=== PATIENT | female | born 1955 | race Caucasian/White ===

== ENCOUNTER 2018-03-10 21:08 | Emergency (ER) | payer MEDICARE, OTHER ==
[~2018-03-10] VITALS: Ht 162.6 cm; Wt 61.2 kg
[~2018-03-10 21:08] MED LIST: AMLODIPINE BESY10 MG PO; B12INJ IM; CHLORTHALIDONE25 MG PO; CYMBALTA60 MG PO; FLAGYL500 MG PO; KLOR-CON 1010 MEQ PO; LEVAQUIN 500 M500 M2 PO; NAPROSYN500 MG PO; OMEPRAZOLE40 MG PO; PHENERGAN 25 MG25 M1 PO; PRIMIDONE50 MG PO; VASCEPA1 GM PO; VITAMIN D 5050000 I1 PO
[2018-03-10] MEDS ORDERED: FENOFIBRATE160 MG (21:17)
[2018-03-10] MEDS ORDERED: WELLBUTRIN SR150 MG (21:18)
[2018-03-10] MEDS ORDERED: NORCO 5-325 TA1 EAC1 PO (23:25)
[2018-03-10 23:43] VITALS: BP 137/86
== END 2018-03-10 23:43 | disposition home or self-care (01) ==
LOC: M.ERS 21:08
DX: S82.492A Other fracture of shaft of left fibula, initial encounter for closed fracture (principal); I10 Essential (primary) hypertension; E78.00 Pure hypercholesterolemia, unspecified; K21.9 Gastro-esophageal reflux disease without esophagitis; F32.9 Major depressive disorder, single episode, unspecified; Z88.8 Allergy status to other drugs, medicaments and biological substances; X50.1XXA Overexertion from prolonged static or awkward postures, initial encounter; Y93.89 Activity, other specified; Y92.89 Other specified places as the place of occurrence of the external cause; Y99.8 Other external cause status

== ENCOUNTER 2020-08-02 20:36 | Inpatient (IN) | payer MEDICARE, OTHER ==
[~2020-08-02] VITALS: Ht 162.6 cm; Wt 65.3 kg
[~2020-08-02 20:36] MED LIST changes: +FENOFIBRATE160 MG; +NORCO 5-325 TA1 EAC1 PO; +WELLBUTRIN SR150 MG
[2020-08-02 21:05] VITALS: BP 185/106
[2020-08-02] MEDS ORDERED: PERCOCET 5-3251 EACH PO (22:05)
[2020-08-02 22:53] LABS: ABSOLUTE BASOPHILS 0.1 thou/uL (0.0-0.2); ABSOLUTE EOSINOPHILS 0.2 thou/uL (0.0-0.7); ABSOLUTE LYMPHOCYTES 1.1 thou/uL (0.8-5.3); ABSOLUTE MONOCYTES 1.4 thou/uL (0.0-1.2); ABSOLUTE NEUTROPHILS 4.6 thou/uL (1.6-8.1); BASOPHILS 0.8 %; EOSINOPHILS 2.6 %; HEMATOCRIT 37.6 % (37.0-47.0); HEMOGLOBIN 12.6 gm/dL (12.0-15.0); LYMPHOCYTES 15.6 %; MCH 33.3 pg (26.0-34.0); MCHC 33.4 g/dL (28.0-37.0); MCV 99.6 fL (80.0-100.0); MONOCYTES 18.9 %; MPV 7.5 fl. (7.2-11.1); NUCLEATED RBCS 0 /100WBC; PLATELET COUNT* 256 thou/uL (150-400); POLYS 62.1 %; RBC 3.78 mil/uL (4.20-5.00); RDW-CV 13.5 % (10.5-14.5); WBC 7.3 thou/uL (4.0-11.0)
[2020-08-02 22:55] LABS: CALCIUM 8.5 mg/dL (8.5-10.1); CREATININE 1.1 mg/dL (0.6-1.3); POTASSIUM 3.8 mmol/L (3.5-5.1)
[2020-08-02 23:00] LABS: ALBUMIN 3.2 g/dL (3.4-5.0); TOTAL BILIRUBIN 0.4 mg/dL (<0.1-1.0); TOTAL PROTEIN 6.9 g/dL (6.4-8.2)
[2020-08-02 23:22] VITALS: BP 167/87
[2020-08-02 23:32] VITALS: BP 173/90
[2020-08-03] MEDS ORDERED: FOLIC ACID1 MG PO (01:47)
[2020-08-03 08:03] VITALS: BP 166/81
[2020-08-03 11:29] VITALS: BP 173/78
[2020-08-03 20:30] VITALS: BP 159/90
[2020-08-04 07:41] VITALS: BP 168/83
[2020-08-04 13:47] VITALS: BP 168/83
[2020-08-04] MEDS ORDERED: DURAGESIC1 EAC2 TOP (14:35)
[2020-08-04] MEDS ORDERED: PERCOCET 5-3251 EACH PO (14:36)
[2020-08-04] MEDS ORDERED: MELOXICAM7.5 MG PO (14:37)
[2020-08-04] MEDS ORDERED: ASPERCREME1 EACH TOP (14:37)
[2020-08-04 15:01] VITALS: BP 168/83
== END 2020-08-04 15:01 | disposition home or self-care (01) | DRG 543 ==
LOC: M.ERS 20:36 → M.ORTHSURG 22:46 → M.TBA-ER 22:46 → M.ORTHSURG 23:31
PROVIDERS: Family Medicine; ADMIT Internal Medicine; ATTEND Internal Medicine
PROC: 2W3BX1Z Immobilization of Left Upper Arm using Splint (ICD-10-PCS; principal; 2020-08-02)
DX: M80.022A Age-related osteoporosis with current pathological fracture, left humerus, initial encounter for fracture (principal); E44.1 Mild protein-calorie malnutrition; I10 Essential (primary) hypertension; R25.1 Tremor, unspecified; F32.9 Major depressive disorder, single episode, unspecified; G89.29 Other chronic pain; E78.00 Pure hypercholesterolemia, unspecified; K21.9 Gastro-esophageal reflux disease without esophagitis; M79.7 Fibromyalgia; Z20.828 Contact with and (suspected) exposure to other viral communicable diseases; Z68.24 Body mass index [BMI] 24.0-24.9, adult; Z90.710 Acquired absence of both cervix and uterus; Z79.899 Other long term (current) drug therapy; Z88.8 Allergy status to other drugs, medicaments and biological substances

== ENCOUNTER 2021-04-22 19:34 | Emergency (ER) | payer MEDICARE, OTHER ==
[~2021-04-22] VITALS: Ht 162.6 cm; Wt 62.6 kg
[~2021-04-22 19:34] MED LIST changes: +ASPERCREME1 EACH TOP; +DURAGESIC1 EAC2 TOP; +FOLIC ACID1 MG PO; +MELOXICAM7.5 MG PO; +PERCOCET 5-3251 EACH PO
[2021-04-22 21:50] LABS: URINE BILIRUBIN NEGATIVE (Negative); URINE BLOOD NEGATIVE (Negative); URINE CLARITY CLEAR; URINE COLOR YELLOW; URINE GLUCOSE-RANDOM NEGATIVE (Negative); URINE KETONES TRACE (Negative); URINE LEUKOCYTES-REFLEX NEGATIVE (Negative); URINE NITRITE-REFLEX NEGATIVE (Negative); URINE PROTEIN NEGATIVE (Negative)
[2021-04-22] MEDS ORDERED: FLEXERIL PO (23:45)
[2021-04-23 00:15] VITALS: BP 150/84
== END 2021-04-23 00:15 | disposition home or self-care (01) ==
LOC: M.ERS 19:34
PROVIDERS: Nurse Practitioner Psychiatric/Mental Health
DX: S20.211A Contusion of right front wall of thorax, initial encounter (principal); I10 Essential (primary) hypertension; E78.00 Pure hypercholesterolemia, unspecified; K21.9 Gastro-esophageal reflux disease without esophagitis; Z91.040 Latex allergy status; Z88.8 Allergy status to other drugs, medicaments and biological substances; Z79.899 Other long term (current) drug therapy; W22.8XXA Striking against or struck by other objects, initial encounter; Y93.89 Activity, other specified; Y92.89 Other specified places as the place of occurrence of the external cause; Y99.8 Other external cause status